=== PATIENT | female | born 1995 | race Caucasian/White ===

== ENCOUNTER → 2023-12-21 08:26 | Outpatient (REF) | payer OTHER, SELFPAY | LOC: HWEVLT 08:26 | PROVIDERS: ATTENDING PHYSICIAN Radiology Vascular & Interventional Radiology | DX: I83.893 Varicose veins of bilateral lower extremities with other complications (principal) | CPT/HCPCS: 93970 ==

== ENCOUNTER → 2024-01-15 14:26 | Outpatient (REF) | payer OTHER, SELFPAY | LOC: HWRAD 14:26 | PROVIDERS: ATTENDING PHYSICIAN Family Medicine | DX: D50.9 Iron deficiency anemia, unspecified (principal); K62.5 Hemorrhage of anus and rectum | CPT/HCPCS: 74177; Q9967 ==

== ENCOUNTER → 2025-06-03 15:22 | Outpatient (REF) | payer OTHER, SELFPAY | LOC: HWRAD 15:22 | PROVIDERS: ATTENDING PHYSICIAN Physician Assistant Medical | DX: R59.0 Localized enlarged lymph nodes (principal) | CPT/HCPCS: 76536 ==